=== PATIENT | male | born 1950 | race Caucasian/White ===

== ENCOUNTER 2017-08-05 09:59 | Day surgery (SDC) | payer OTHER ==
[2017-08-04 12:32] LABS: BASOPHILS % (AUTO) 0.4 % (0.0-2.0); EOSINOPHILS # (AUTO) 0.2 K/uL (0.0-0.4); EOSINOPHILS % (AUTO) 3.2 % (0.0-4.0); HEMATOCRIT 41.5 % (36-54); HEMOGLOBIN 13.9 g/dL (14.0-18.0); LYMPHOCYTES # (AUTO) 1.5 K/uL (1.0-5.5); LYMPHOCYTES % (AUTO) 20.8 % (20.5-51.5); MEAN CORPUSCULAR HEMOGLOBIN 32 pg (27-31); MEAN CORPUSCULAR HGB CONC 34 % (32-36); MEAN CORPUSCULAR VOLUME 96 fL (79.0-98.0); MONOCYTES # (AUTO) 0.7 K/uL (0.0-1.0); MONOCYTES % (AUTO) 10.7 % (1.7-9.3); NEUTROPHILS # (AUTO) 4.6 K/uL (1.8-7.7); NEUTROPHILS % (AUTO) 64.9 % (40.0-70.0); PLATELET COUNT (AUTO) 292 K/uL (130-430); RED BLOOD CELL COUNT(AUTO) 4.31 MIL/uL (4.2-6.2)
[2017-08-04 13:15] LABS: CALCIUM 9.4 mg/dL (8.4-11.0); CREATININE 1.14 mg/dL (0.55-1.30); POTASSIUM 4.1 mmol/L (3.5-5.1)
[2017-08-04 13:40] LABS: BILIRUBIN,URINE NEGATIVE (NEGATIVE); BLOOD, URINE NEGATIVE (NEGATIVE); CLARITY/URINE CLEAR (CLEAR); COLOR,URINE YELLOW (YELLOW); GLUCOSE,URINE NEGATIVE (NEGATIVE); KETONES,URINE NEGATIVE (NEGATIVE); LEUKOCYTE ESTERASE ,URINE NEGATIVE (NEGATIVE); NITRITE, URINE NEGATIVE (NEGATIVE); PROTEIN URINE NEGATIVE (NEGATIVE); UROBILINOGEN,URINE 0.2 (0.2-1.0)
[~2017-08-05] VITALS: Ht 170.2 cm; Wt 82.6 kg
[2017-08-05] MEDS ORDERED: CEFAZOLIN SOD 2 GM in D5W 50 ML IV ONE (10:45)
[2017-08-05] MEDS ORDERED: POLYMYXIN 500,000/BACIT.10,000 UNITS in NS IRR 1 L IR ONE (13:28)
[2017-08-05] MEDS ORDERED: LR 1,000 ML IV ONE (16:41)
[2017-08-05] MEDS ORDERED: NALBUPHINE HCL 10 MG/ML AMP IVP PRN (16:45)
[2017-08-05] MEDS ORDERED: ONDANSETRON HCL 4 MG/2 ML VIAL IVP PRN ×2 (16:45)
[2017-08-05] MEDS ORDERED: NALOXONE HCL 0.4 MG/ML AMP (NARCAN) IVP PRN (16:45)
[2017-08-05] MEDS ORDERED: DIPHENHYDRAMINE INJ 50 MG/ML VIAL IVP PRN (16:45)
[2017-08-05] MEDS ORDERED: ePHEDrine sulfate 50 MG/ML VIAL IVP PRN (16:45)
[2017-08-05] MEDS ORDERED: fentaNYL CITRATE/PF 100 MCG/2 ML AMP IVP PRN (16:45)
[2017-08-05] MEDS ORDERED: LR 1,000 ML IV SCH (16:56)
[2017-08-05] MEDS ORDERED: DIPHENHYDRAMINE HCL 25 MG CAPSULE PO PRN (17:00)
[2017-08-05] MEDS ORDERED: ACETAMINOPHEN 500 MG TABLET PO ONE (17:00)
[2017-08-05] MEDS ORDERED: fentaNYL CITRATE/PF 100 MCG/2 ML AMP ONE (17:09)
[2017-08-05] MEDS: fentaNYL CITRATE/PF 100 MCG/2 ML AMP IVP ONE (17:10)
[2017-08-05] MEDS: HYDROmorphone 1 MG INJ. 1 MG/ML AMPUL IVP ONE (17:25)
[2017-08-05] MEDS ORDERED: HYDROmorphone 1 MG INJ. 1 MG/ML AMPUL ONE (17:26)
[2017-08-05] MEDS ORDERED: HYDROmorphone 1 MG INJ. 1 MG/ML AMPUL IVP ONE (17:30)
[2017-08-05 18:33] VITALS: BP_SYST 155
[2017-08-05] MEDS: traMADol HCL HCL 50 MG TABLET (ULTRAM) PO PRN (19:25)
[2017-08-05] MEDS ORDERED: traMADol HCL HCL 50 MG TABLET (ULTRAM) ONE (19:26)
== END 2017-08-05 20:30 | disposition home or self-care (01) ==
LOC: SDS 09:59 → SMU 10:00 → SDS 20:30
PROVIDERS: ATTEND Orthopaedic Surgery
DX: S76.112A Strain of left quadriceps muscle, fascia and tendon, initial encounter (principal); X58.XXXA Exposure to other specified factors, initial encounter; Y93.9 Activity, unspecified; Y92.89 Other specified places as the place of occurrence of the external cause; Y99.9 Unspecified external cause status; E11.9 Type 2 diabetes mellitus without complications; I10 Essential (primary) hypertension; Z87.891 Personal history of nicotine dependence; K74.60 Unspecified cirrhosis of liver; E78.00 Pure hypercholesterolemia, unspecified; M19.90 Unspecified osteoarthritis, unspecified site
CPT/HCPCS: 27430; 36415; 71046; 80048; 81003; 82962; 85025; J0690; J1170; J3010; J7060